=== PATIENT | male | born 1980 | race Caucasian/White ===

== ENCOUNTER → 2017-06-16 | Day surgery (SDC) | payer OTHER ==
[~2017-06-16] MED LIST: LACTATED RINGER'S 1000 ML INJ 1,000 ML ONE; PROPOFOL 500 MG/50 ML BTL IV ONE
== END | disposition home or self-care (01) ==
LOC: ESDC 08:42 → EDBD 08:42
PROVIDERS: ATTEND Internal Medicine Gastroenterology
DX: K74.60 Unspecified cirrhosis of liver (principal); I85.00 Esophageal varices without bleeding; K29.70 Gastritis, unspecified, without bleeding
CPT/HCPCS: 00731; 43239; 43244; 88305; 88312; J3010; J7120

== ENCOUNTER → 2017-09-02 | Outpatient (CLI) | payer OTHER | LOC: CLAB 06:23 | PROVIDERS: ATTEND Internal Medicine Gastroenterology | DX: K74.60 Unspecified cirrhosis of liver (principal) | CPT/HCPCS: 36415; 82140 ==